=== PATIENT | female | born 1950 | race Caucasian/White ===

== ENCOUNTER 2018-01-15 16:46 | Observation (INO) | payer MEDICAID ==
[~2018-01-15] VITALS: Ht 160 cm; Wt 159.1 kg
--- NOTE | ~2018-01-15 | OP ---
PATIENT NAME: RICO YIN MEDICAL RECORD: [id number] :54 LOCATION:[facility] ADMISSION DATE:01/15/18 SURGEON: AGUSTIN OLIVAS MD DATE OF OPERATION: 01/16/2018 PROCEDURES: 1. Left heart catheterization. 2. Selective coronary angiography. 3. Vein graft angiography. 4. Left ventriculogram. INDICATION: Angina and coronary artery disease. PROCEDURE IN DETAIL: After informed consent was obtained and after detailed explanation of risks, benefits as well as alternative therapies, the patient elected to proceed with angiogram and heart catheterization. The right femoral area was prepped and draped in normal sterile fashion. Right femoral artery was cannulated via modified Seldinger technique with placement of 5-Setswana sheath. All catheters exchanged through this sheath. FINDINGS: The left ventriculogram was performed in standard 30-degree VELARDE view reveals preserved cardiac wall motion and ejection fraction 50%. SELECTIVE CORONARY ANGIOGRAPHY: 1. Left main showed no significant angiographic disease. 2. Left anterior descending has 80% to 90% stenosis proximally. 3. Vein graft to the distal LAD is widely patent. 4. The left circumflex has 80% to 90% stenosis proximally. 5. Vein graft to circumflex is widely patent. 6. The right coronary has 80% to 90% stenosis in the mid vessel. 7. Vein graft to the right coronary is closed. OVERALL IMPRESSION: Wide patency of the vein graft to the left and LAD, closure of the vein graft to the right. Proceed with transcatheter revascularization of the RCA in a staged fashion in the near future. TRANSINT:[id number] Voice Confirmation ID: [id number] DOCUMENT ID: [id number] AUGSTIN OLIVAS MD at 1057 CC: [id number] DICTATION DATE: 01/16/18 1329 RN FLOAT: 01/16/18 1446 DIS IN 01/17/18 [place] [id number]
--- NOTE | ~2018-01-15 | HEMODYNAMI ---
PATIENT:RICO YIN MEDICAL RECORD: [id number] : 54 [facility] [id number] ADMISSION DATE: 01/15/18 Generatedon:01/17/201812:18 Patient name: RCIO YIN Patient #: [id number] SSN: [id number] : 1950 Date of study: 01/17/2018 Page: Of Hemodynamic Procedure Report Patient Data Patient Demographics Procedure consent was obtained First Name: RICO Gender: Female Last Name: HUMPHREY : 1950 Middle Initial: KATHLEEN Age: 67 year(s) Patient #: [id number] Race: Unknown SSN: [id number] Additional ID: [id number] Contact details [address]: [address] [place] [address] State: [place] City: [place] Zip code: [address] Admission Admission Data Admission Date: 01/15/2018 Admission Time: 18:51 Room #: 212 Lab Results Lab Result Date: 01/16/2018 Lab Result Time: 0:00 Biochemistry Name Units Result Min Max BUN mg/dl 15 --(--*-)-- 7 18 Creatinine mg/dl 1 --(--*-)-- 0.6 1.3 CBC Name Units Result Min Max Hemoglobin g/dl 13 -*(----)-- 13.5 17.5 Procedure Procedure Types Cath Procedure PCI Procedure Coronary Stent Coronary Stent Initial Procedure Description Procedure Date Procedure Date: 01/17/2018 Procedure Start Time: 12:05 Procedure End Time: 12:18 Procedure Staff Name Function Constantino Hahn MD Performing Physician Alicja Rocha RT Monitor Christiano Lujan RN Nurse Teri Mason RT Scrub Procedure Data Cath Procedure Fluoroscopy Diagnostic fluoroscopy Total fluoroscopy Time: 1.9 time: 1.9 min min Diagnostic fluoroscopy Total fluoroscopy dose: 309 dose: 309 mGy mGy Contrast Material Contrast Material Type Amount (ml) Isovue 300 27 Entry Location Entry Primary Successful Side Size Upsize Upsize Entry Closure Sweeney ccessful Closure Location (Fr) 1 (Fr) 2 (Fr) Remarks Device Remarks Radial Right 6 Fr Mechanical artery Short Compression Estimated blood loss: 5 ml Procedure Complications No complications Procedure Medications Medication Administration Route Dosage 0.9% NaCl I.V. 100 ml/hr Oxygen etCO2 Nasal cannula 2 l/min Heparin Flush Bag added to field 2 bags (1000units/500ml NS) Lidocaine 2% added to field 20 Radial Cocktail added to field (Verapomil 2mg/Nitro 400mcg/Heparin 1500units) Versed I.V. 2 mg Fentanyl I.V. 100 mcg Versed I.V. 1 mg Radial Cocktail I.A. (Verapomil 2mg/Nitro 400mcg/Heparin 1500units) Heparin Bolus I.V. 4000 units Versed I.V. 1 mg Hemodynamics Rest HGB: 13 (g/dl) Heart Rate: 84 (bpm) Snapshots Pre Cath Intra NCS Post Cath Vital Signs Time Heart Resp SPO2 etCO2 NIBP (mmHg) Rhythm Pain Sedation Rate (ipm) (%) (mmHg) Status Level (bpm) 11:53:41 85 16 100 46.4 145/63(107) NSR 0 (11) 10(A) , No pain 11:58:42 83 13 100 41.1 129/57(88) NSR 0 (11) 10(A) , No pain 12:03:43 80 14 99 44.9 135/62(82) NSR 0 (11) 10(A) , No pain 12:08:50 92 16 100 43.4 137/49(90) NSR 0 (11) 10(A) , No pain 12:13:59 86 14 97 44.8 105/45(88) NSR 0 (11) 10(A) , No pain Medications Time Medication Route Dose Verified Delivered Reason Notes Effectiveness by by 11:55:01 0.9% NaCl I.V. 100 Christiano Christiano Per physician ml/hr Tai Lujan RN RN 11:55:13 Oxygen etCO2 2 Christiano Christiano Per physician Nasal l/min Tai Lujan cannula RN RN 11:55:27 Heparin Flush added 2 Christiano Christiano used for Bag to bags Tai Lujan procedure (1000units/500ml field RN RN NS) 11:55:40 Lidocaine 2% added 20ml Christiano Christiano for local to vial Marylily Tai anesthetic RN RN 11:55:53 Radial Cocktail added Christiano Christiano used for (Verapomil to Lorigan Lorigan procedure 2mg/Nitro field RN RN 400mcg/Heparin 1500units) 12:01:50 Versed I.V. 2 mg Christiano Christiano for sedation Tai Lujan RN RN 12:02:03 Fentanyl I.V. 100 Christiano Christiano for sedation mcg Tai Lujan RN RN 12:07:51 Versed I.V. 1 mg Christiano Christiano for sedation Tai Lujan RN RN 12:08:04 Radial Cocktail I.A. Christiano Constantino for (Verapomil Tai Hahn MD vasodilation 2mg/Nitro RN 400mcg/Heparin 1500units) 12:11:37 Heparin Bolus I.V. 4000 Christiano Christiano for units Tai Lujan anticoagulation RN RN 12:14:48 Versed I.V. 1 mg Christiano Christiano for sedation Tai Lujan RN diabetic educator Log Time Note 11:33:00 Teri Mason RT(R) sent for patient. Start room use. 11:52:03 Time tracking: Regular hours 11:52:06 Plan of Care:Hemodynamics will remain stable., Cardiac rhythm will remain stable., Comfort level will be maintained., Respiratory function will remain adequate., Patient/ family verbilizes understanding of procedure., Procedure tolerated without complication., Recovers from procedure without complications.. 11:52:15 Patient received from PCU to CCL 1 Alert and oriented. Tansferred to table in Supine position. 11:52:16 Warm blankets applied, and cori hugger turned on for patient comfort. 11:52:17 Correct patient and procedure confirmed by team. 11:52:18 Signed procedure consent form obtained from patient. 11:52:19 ECG and BP/O2 sat monitors applied to patient. 11:52:19 Vital chart was started 11:52:20 Full Disclosure recording started 11:52:29 H&P Date Dictated: 01/15/2018 Within 30 days and on chart.. 11:52:34 Rhythm: sinus rhythm 11:52:36 Pre-op teaching completed and patient verbalized understanding. 11:52:37 Pre-procedure instructions explained to patient. 11:52:40 Family unavailable. 11:52:41 Patient NPO since Midnight. 11:52:47 Is the patient allergic to Iodine/contrast media? No. 11:52:50 Is patient on blood thinner?Yes 11:52:52 ACC The patient was administered the following blood thiners within the last 24 hours: ACCPlavix 11:52:54 Patient diabetic? No. 11:52:58 Previous problem with sedation/anesthesia? No ? 11:52:58 Snore? Yes 11:52:59 Sleep apnea? No 11:53:00 Deviated septum? No 11:53:01 Opens mouth fully? Yes 11:53:01 Sticks out tongue? Yes 11:53:05 Airway obstruction? Yes Asthma 11:53:08 Dentures? No ? 11:53:11 Pre procedure: right dorsailis pedis pulse 1+ Palpable, but thready & weak; easily obliterated 11:53:18 Modified Omari's test Ulnar < 7 seconds 11:53:20 Patient pain scale 0/10 ?. 11:53:28 IV patent on arrival in left wrist with 0.9% NaCl at O. 11:53:32 Lab results completed and on chart. 11:53:36 Right groin area was prepped with chlora-prep and draped in sterile fashion 11:53:38 Alarms reviewed by R. N. 11:53:38 Sharps counted by scrub and verified by R.N. 11:53:44 Use device set CATH PACK 11:53:48 Use device set TAUTH PCI 11:54:00 SHEATH 6Fr Prelude Radial ([id number]) opened to sterile field. 11:54:03 ACIST Syringe (06043) opened to sterile field. 11:54:03 ACIST Hand Control (68695) opened to sterile field. 11:54:04 ACIST Manifold (98600) opened to sterile field. 11:54:04 Medline Cath Pack ([id number]) opened to sterile field. 11:54:05 Bag Decanter (2002) opened to sterile field. 11:54:05 DIAGNOSTIC WIRE .035 260cm J wire (245449) opened to sterile field. 11:54:06 INFLATOR Merit BasixCompak (LQ3103) opened to sterile field. 11:54:10 CHOICE PT Extra Support 182cm wire ([id number]) opened to sterile field. 11:55:01 0.9% NaCl 100 ml/hr I.V. was administered by Christiano Lujan RN; Per physician; 11:55:13 Oxygen 2 l/min etCO2 Nasal cannula was administered by Christiano Lujan RN; Per physician; 11:55:27 Heparin Flush Bag (1000units/500ml NS) 2 bags added to field was administered by Christiano Lujan RN; used for procedure; 11:55:40 Baseline sample Acquired. 11:55:40 Lidocaine 2% 20ml vial added to field was administered by Christiano Lujan RN; for local anesthetic; 11:55:53 Radial Cocktail (Verapomil 2mg/Nitro 400mcg/Heparin 1500units) added to field was administered by Christiano Lujan RN; used for procedure; 11:58:25 Physician paged 12:00:51 Final Timeout: patient, procedure, and site verified with staff and physician. All members of the team are in agreement. 12:00:54 Right Radial site verified by team. 12:00:57 Physical assessment completed. ASA score P 2 - A patient with mild systemic disease as per Constantino Hahn MD. 12:01:02 Sedation plan: IV Moderate Sedation Medication:Versed, Fentanyl 12:01:40 Zero performed for pressure channel P1 12:01:50 Versed 2 mg I.V. was administered by Christiano Lujan RN; for sedation; 12:02:03 Fentanyl 100 mcg I.V. was administered by Christiano Lujan RN; for sedation; 12:05:05 Procedure started. 12:05:50 Local anesthetic to right radial artery with Lidocaine 2% by Constantino Hahn MD.INITIAL ACCESS ONLY 12:06:59 A 6 Fr Short sheath was inserted into the Right Radial artery 12:07:34 6 Fr AR 2.0 guide catheter was inserted over the wire 12:07:51 Versed 1 mg I.V. was administered by Christiano Lujan RN; for sedation; 12:08:04 Radial Cocktail (Verapomil 2mg/Nitro 400mcg/Heparin 1500units) I.A. was administered by Constantino Hahn MD; for vasodilation; 12:11:17 CHOICE PT ES wire advanced. 12:11:37 Heparin Bolus 4000 units I.V. was administered by Christiano Lujan RN; for anticoagulation; 12:12:00 Place stent Inflation Number: 1 A CHERELLE RX 3.0 x 38 stent ([id number]) was prepped and advanced across the Mid RCA. The stent was deployed at 15 LESLIE for 0:10 (min:sec). 12:12:45 Stent catheter was removed intact over wire. 12:12:46 Wire removed. 12:12:47 Guide catheter removed. 12:12:59 Sheath removed intact; hemostasis achieved with Mechanical Compression to the Right Radial artery. 12:13:02 Procedure ended.(Physican Out) 12:13:09 Fluoroscopy time 01.90 minutes. 12:13:13 Flurop Dose total: 309 12:13:13 Fluoroscopy dose: 309 mGy 12:13:17 Contrast amount:Isovue 300 27ml. 12:13:19 Sharps counted by scrub and verified by R.N. 12:13:20 Insertion/operative site no bleeding no hematoma. 12:13:23 TR band inflated with 12cc of air. 12:13:36 Post right radial artery:stable, clean and dry 12:13:38 Post Procedure Pulses reassessed and unchanged 12:13:41 Post-procedure physical assessment completed. ASA score P 2 - A patient with mild systemic disease as per Constantino Hahn MD. 12:13:43 Post procedure rhythm: unchanged. 12:13:47 Estimated blood loss: 5 ml 12:13:48 Post procedure instruction explained to patient.Patient verbalizes understanding. 12:13:49 Patient needs reinforcement of post procedure teaching. 12:13:50 Procedure and supply charges have been captured, reviewed, submitted and are correct. 12:13:55 Procedure Complication : No complications 12:13:58 See physician's report for complete and final results. 12:14:18 TR BAND Standard ([id number]) opened to sterile field. 12:14:28 GUIDE 6FR AR 2.0 catheter (OU4MZ08) opened to sterile field. 12:14:48 Versed 1 mg I.V. was administered by hCristiano Lujan RN; for sedation; 12:17:27 Vital chart was stopped 12:17:30 Report given to Pre/Post Procedure Room. 12:17:34 Patient transfered to Pre/Post Procedure Room with Stretcher. 12:18:21 Procedure ended. 12:18:21 Full Disclosure recording stopped 12:18:24 End room use (Document Last) Intervention Summary Intervention Notes Time ActionType Lesion and Equipment Used Action# Pressure Duration Attributes 12:12:00 Place stent Mid RCA CHERELLE RX 3.0 x 1 15 00:10 38 stent ([id number]) Device Usage Item Name Manufacture Quantity Catalog Number Hospital Part Current Minimal Lot# / Charge Number Stock Stock Serial# Code SHEATH 6Fr Merit 1 [id number] 844985 819388 5 Prelude Radial Medical ([id number]) ACIST Syringe Acist 1 16349 774401 400987 835239 20 (41781) [employer] Inc ACIST Hand Acist 1 36379 154008 077208 793134 5 Control (57579) [employer] Inc ACIST Manifold Acist 1 88437 057035 238185 506600 5 (23402) Medical Systems Inc Medline Cath Cardinal 1 [id number] 330467 30447 417416 5 [employer] ([id number]) Bag Decanter Microtek 1 2001S 686865 27076 778862 5 (2001S) Medical Inc. DIAGNOSTIC WIRE St Naun 1 684186 665664 533238 450376 30 .035 260cm J wire (256935) INFLATOR Merit Merit 1 UT5680 576111 389050 136310 15 NotehallPark City HospitalMatomy Money Medical (UH8575) CHOICE PT Extra [place] 1 [id number] 647298 001777 378229 5 Support 182cm Scientific wire ([id number]) TR BAND Terumo 1 [id number] 403473 167467 365731 40 Standard ([id number]) GUIDE 6FR AR Medtronic 1 [id number] 072952 55271 823100 1 2.0 catheter (GB1IM27) CHERELLE RX 3.0 x Medtronic 1 [id number] 592440 0750134 945487 5 [id number] 38 stent ([id number]) Signature Audit [place] Stage Time Signature Unsigned Intra-Procedure 01/17/2018 Alicja 12:18:33 PM Counts RT(R) Signatures Monitor : Alicja Signature : Counts RT Date : Time : [place] [address] [place] [place] [address]
--- NOTE | ~2018-01-15 | OP ---
PATIENT NAME: RICO YIN MEDICAL RECORD: [id number] :54 LOCATION:[facility] ADMISSION DATE:01/15/18 SURGEON: AGUSTIN OLIVAS MD DATE OF OPERATION: 01/17/2018 PROCEDURES: 1. PTCA stent RCA. 2. Selective coronary angiography. INDICATION: Angina and coronary artery disease. PROCEDURE IN DETAIL: After informed consent was obtained and after detailed explanation of risks, benefits as well as alternative therapies, the patient elected to proceed with angiogram and angioplasty. The right radial area is prepped and draped in normal sterile fashion. Right radial artery cannulated via modified Seldinger technique with placement of 6-German sheath. All catheter exchanged through this sheath. FINDINGS: The right coronary has a long area of 80% stenosis in the mid vessel. This was addressed with a 3.0 x 38 mm [place]. Result was 0% residual stenosis. OVERALL IMPRESSION: Successful percutaneous transluminal coronary angioplasty stent of the right coronary artery going from 80% initial stenosis to 0% residual. TRANSINT:[id number] Voice Confirmation ID: [id number] DOCUMENT ID: [id number] AGUSTIN OLIVAS MD at 1057 CC: [id number] DICTATION DATE: 01/17/18 1220 ADULT REMEDIAL EDUCATION INSTRUCTOR: 01/17/18 1306 DIS IN 01/17/18 [place] [id number]
--- NOTE | ~2018-01-15 | DS ---
PATIENT:RICO YIN :54 MEDICAL RECORD: [id number] DISCHARGE SUMMARY ADMISSION DATE: 01/15/18 DISCHARGE DATE: 01/17/18 DISCHARGE DIAGNOSES: 1. Unstable angina. 2. Coronary artery disease. 3. PTCA and stent of RCA this admission. HOSPITAL COURSE: Mrs. Yin presents with anginal symptomatology. She was found to have significant disease of the RCA. Underwent successful PTCA and stent of the RCA. Discharged home with the addition of aspirin and Plavix to her medical regimen. She will follow up with [facility] in 1 month. TRANSINT:[id number] Voice Confirmation ID: [id number] DOCUMENT ID: [id number] AGUSTIN OLIVAS MD at 1057 CC: [id number] DICTATION DATE: 01/17/18 1219 DYE RANGE FEEDER: 01/17/18 1315 DIS IN 01/17/18 [place] [id number] [place] [address]
--- NOTE | ~2018-01-15 | HEMODYNAMI ---
PATIENT:RICO YIN MEDICAL RECORD: [id number] : 54 [id number] ADMISSION DATE: 01/15/18 Generatedon:01/16/201813:42 Patient name: RICO YIN Patient #: [id number] SSN: [id number] : 1950 Date of study: 01/16/2018 Page: Of Hemodynamic Procedure Report Patient Data Patient Demographics Procedure consent was obtained First Name: RICO Gender: Female Last Name: HUMPHREY : 1950 Middle Initial: KATHLEEN Age: 67 year(s) Patient #: [id number] Race: Unknown SSN: [id number] Additional ID: [id number] Contact details Address: [address] [place] [address] State: [place] City: [place] Zip code: [address] Admission Admission Data Admission Date: 01/15/2018 Admission Time: 18:51 Room #: 2121 Lab Results Lab Result Date: 01/16/2018 Lab Result Time: 0:00 Biochemistry Name Units Result Min Max BUN mg/dl 15 --(--*-)-- 7 18 Creatinine mg/dl 1 --(--*-)-- 0.6 1.3 CBC Name Units Result Min Max Hemoglobin g/dl 13 -*(----)-- 13.5 17.5 Procedure Procedure Types Cath Procedure Diagnostic Procedure LHC LHC w/Coronaries w/Grafts Procedure Description Procedure Date Procedure Date: 01/16/2018 Procedure Start Time: 12:53 Procedure End Time: 13:31 Procedure Staff Name Function Constantino Hahn MD Performing Physician Brenda Lawrence RT Monitor Shelley Christian RT Scrub Riley Bravo RN Nurse Procedure Data Cath Procedure Fluoroscopy Diagnostic fluoroscopy Total fluoroscopy Time: 4.1 time: 4.1 min min Diagnostic fluoroscopy Total fluoroscopy dose: dose: 1430 mGy 1430 mGy Contrast Material Contrast Material Type Amount (ml) Isovue 300 107 Entry Location Entry Primary Successful Side Size Upsize Upsize Entry Closure Sweeney ccessful Closure Location (Fr) 1 (Fr) 2 (Fr) Remarks Device Remarks Femoral Right 5 Fr Manual artery Compression Estimated blood loss: 5 ml Diagnostic catheters Device Type Used For End Catheter Placement MULTIPACK Pigtail 5 Fr LV Angiography catheter MULTIPACK JL 4.0 5Fr Left Coronary catheter Angiography MULTIPACK 3DRC 5Fr Right Coronary catheter Angiography DIAGNOSTIC AR 2 MOD 5 Fr Multi-vessel catheter ([id number]) Angiography Procedure Complications No complications Procedure Medications Medication Administration Route Dosage Oxygen NC 2 l/min Lidocaine 2% added to field 20 Heparin Flush Bag added to field 2 bags (1000units/500ml NS) 0.9% NaCl I.V. 100 ml/hr Fentanyl I.V. 100 mcg Versed I.V. 1 mg Fentanyl I.V. 50 mcg Versed I.V. 2 mg Versed I.V. 1 mg Fentanyl I.V. 50 mcg Versed I.V. 1 mg Fentanyl I.V. 50 mcg Heparin Bolus I.V. 4000 units Versed I.V. 1 mg Fentanyl I.V. 50 mcg Versed I.V. 1 mg Fentanyl I.V. 50 mcg Hemodynamics Rest Heart Rate: 87 (bpm) Pressure Samples Time Site Value (mmHg) Purpose Heart Use Rate(bpm) 13:15 LV 323/149,138 Snapshot 93 Snapshots Pre Cath Intra NCS Post Cath Vital Signs Time Heart Resp SPO2 etCO2 NIBP (mmHg) Rhythm Pain Sedation Rate (ipm) (%) (mmHg) Status Level (bpm) 12:50:23 87 15 98 42.1 133/116(130) NSR 0 (11) 10(A) , No pain 12:56:40 90 10 96 36.1 151/89(115) NSR 0 (11) 10(A) , No pain 13:00:50 89 26 98 24 162/87(120) NSR 0 (11) 10(A) , No pain 13:06:22 84 13 97 27.8 137/69(109) NSR 0 (11) 10(A) , No pain 13:10:23 89 15 98 12 114/80(109) NSR 0 (11) 10(A) , No pain 13:14:19 90 14 92 1.5 101/87(98) NSR 0 (11) 9(A) , No pain 13:18:13 92 15 93 33.8 103/79(99) NSR 0 (11) 9(A) , No pain 13:24:11 93 15 93 12.7 106/82(101) NSR 0 (11) 9(A) , No pain 13:28:00 97 16 95 18.8 115/95(110) NSR 0 (11) 10(A) , No pain Medications Time Medication Route Dose Verified Delivered Reason Notes Effectiveness by by 12:51:18 Oxygen NC 2 Constantino Buffie used for l/min Jovani Bravo RN procedure 12:51:24 Lidocaine 2% added 20ml Constantino Constantino for local to vial Jovani Hahn MD anesthetic field 12:51:30 Heparin Flush added 2 Constantino Constantino used for Bag to bags Jovani Hahn MD procedure (1000units/500ml field NS) 12:51:38 0.9% NaCl I.V. 100 Constantino Buffie Per physician ml/hr Jovani Bravo RN 12:54:14 Versed I.V. 2 mg Constantino Buffie for sedation Jovani Bravo RN 12:54:20 Fentanyl I.V. 100 Constantino Buffie for sedation mcg Jovani Bravo RN 13:06:24 Versed I.V. 1 mg Constantino Buffie for sedation Jovani Bravo RN 13:06:27 Fentanyl I.V. 50 Constantino Buffie for sedation mcg Jovani Bravo RN 13:10:48 Versed I.V. 1 mg Constantino Buffie for sedation Jovani Bravo RN 13:10:51 Fentanyl I.V. 50 Constantino Buffie for sedation mcg Jovani Bravo RN 13:14:31 Versed I.V. 1 mg Constantino Buffie for sedation Jovani Bravo RN 13:14:34 Fentanyl I.V. 50 Constantino Buffie for sedation mcg Jovani Bravo RN 13:18:52 Versed I.V. 1 mg Constantino Buffie for sedation Jovani Bravo RN 13:18:56 Fentanyl I.V. 50 Constantino Buffie for sedation soo Bravo RN 13:22:27 Versed I.V. 1 mg Constantino Buffie for sedation Jovani Bravo RN 13:22:31 Fentanyl I.V. 50 Constantino Buffie for sedation soo Bravo RN 13:23:22 Heparin Bolus I.V. 4000 Constantino Lin for verifi ed units Jovani Bravo RN anticoagulation with dr hahn Procedure Log Time Note 12::06 Informed consent obtained and on chart 12:24:09 Diagnostic Cath Status : Elective 12:24:38 Brenda Lawrence RT(R) sent for patient. Start room use. 12:24:39 Time tracking: Regular hours 12:24:43 Plan of Care:Hemodynamics will remain stable., Cardiac rhythm will remain stable., Comfort level will be maintained., Respiratory function will remain adequate., Patient/ family verbilizes understanding of procedure., Procedure tolerated without complication., Recovers from procedure without complications.. 12:30:06 Lab Result : Hemoglobin 13 g/dl 12:30:06 Lab Result : Creatinine 1 mg/dl 12:30:06 Lab Result : BUN 15 mg/dl 12:35:02 Patient received from Med II to CCL 2 Alert and oriented. Tansferred to table in Supine position. 12:35:03 Warm blankets applied, and cori hugger turned on for patient comfort. 12:35:04 Correct patient and procedure confirmed by team. 12:35:05 ECG and BP/O2 sat monitors applied to patient. 12:49:20 Vital chart was started 12:49:21 Baseline sample Acquired. 12:49:28 Rhythm: sinus rhythm 12:49:29 Full Disclosure recording started 12:49:33 H&P Date Dictated: 01/16/2018 Within 30 days and on chart., H&P Addendum completed by physician on day of procedure. (MUST COMPLETE FOR ALL OUTPATIENTS). 12:49:34 Pre-procedure instructions explained to patient. 12:49:35 Pre-op teaching completed and patient verbalized understanding. 12:49:36 Family in waiting room. 12:49:37 Patient NPO since Dinner. 12:49:45 Is the patient allergic to Iodine/contrast media? No. 12:49:47 Was the patient premedicated? No 12:50:00 Is patient on blood thinner?Yes 12:50:03 ACC The patient was administered the following blood thiners within the last 24 hours: ACCPlavix 12:50:46 Patient diabetic? No. 12:50:48 Previous problem with sedation/anesthesia? No ? 12:50:51 Snore? Yes 12:50:53 Sleep apnea? No 12:50:54 Deviated septum? No 12:50:55 Opens mouth fully? Yes 12:50:56 Sticks out tongue? Yes 12:51:01 Airway obstruction? Yes asthma 12:51:04 Dentures? No ? 12:51:08 Pre procedure: right dorsailis pedis pulse 1+ Palpable, but thready & weak; easily obliterated 12:51:11 Pre procedure: left dorsailis pedis pulse 1+ Palpable, but thready & weak; easily obliterated 12:51:14 Patient pain scale 0/10 ?. 12:51:18 Oxygen 2 l/min NC was administered by Riley Bravo RN; used for procedure; 12:51:21 IV patent on arrival in left antecubital with 0.9% NaCl at [facility]. 12:51:24 Lidocaine 2% 20ml vial added to field was administered by Constantino Hahn MD; for local anesthetic; 12:51:25 Lab results completed and on chart. 12:51:29 Right groin area was prepped with chlora-prep and draped in sterile fashion 12:51:30 Heparin Flush Bag (1000units/500ml NS) 2 bags added to field was administered by Constantino Hahn MD; used for procedure; 12:51:30 Alarms reviewed by R. N. 12:51:30 Sharps counted by scrub and verified by R.N. 12:51:31 Physician arrived 12:51:31 Final Timeout: patient, procedure, and site verified with staff and physician. All members of the team are in agreement. 12:51:32 --------ALL STOP TIME OUT------ 12:51:34 Right groin site verified by team. 12:51:38 0.9% NaCl 100 ml/hr I.V. was administered by Riley Bravo RN; Per physician; 12:52:28 Physical assessment completed. ASA score P 2 - A patient with mild systemic disease as per Constantino Hahn MD. 12:52:31 Sedation plan: IV Moderate Sedation Medication:Versed, Fentanyl 12:52:34 Use device set Femoral Dx 12:52:35 ACIST Syringe (23401) opened to sterile field. 12:52:35 Bag Decanter (2002) opened to sterile field. 12:52:36 Medline Cath Pack ([id number]) opened to sterile field. 12:52:37 DIAGNOSTIC WIRE .035 260cm J wire (489042) opened to sterile field. 12:52:38 ACIST Hand Control (78496) opened to sterile field. 12:52:39 ACIST Manifold (15227) opened to sterile field. 12:52:39 DIAGNOSTIC Multipack 5Fr catheter set (CG1696) opened to sterile field. 12:52:40 Tegaderm 4 x 4 (1626W) opened to sterile field. 12:52:55 SHEATH 5Fr Prelude ([id number]) opened to sterile field. 12:53:17 Procedure started. 12:53:40 Local anesthetic to right femoral artery with Lidocaine 2% by Constantino Hahn MD.INITIAL ACCESS ONLY 12:54:14 Versed 2 mg I.V. was administered by Riley Bravo RN; for sedation; 12:54:20 Fentanyl 100 mcg I.V. was administered by Riley Bravo RN; for sedation; 12:54:31 Zero performed for pressure channel P1 12:57:51 IV left antecubital D/C'd due to infiltration. 13:00:21 Riley Bravo attemping to start new IV; Dr. Hahn left room, will rescrub when new IV is placed 13:05:05 IV started by Riley Braov RN inleft hand with a 20 gauge IV catheter with 0.9% NaCl at O. 13:06:24 Versed 1 mg I.V. was administered by Riley Bravo RN; for sedation; 13:06:27 Fentanyl 50 mcg I.V. was administered by Riley Bravo RN; for sedation; 13:10:48 Versed 1 mg I.V. was administered by Riley Bravo RN; for sedation; 13:10:51 Fentanyl 50 mcg I.V. was administered by Riley Bravo RN; for sedation; 13:12:25 Dr. Hahn rescrubbed and ready to resume procedure 13:14:07 A 5 Fr sheath was inserted into the Right Femoral artery 13:14:31 Versed 1 mg I.V. was administered by Riley Bravo RN; for sedation; 13:14:34 Fentanyl 50 mcg I.V. was administered by Riley Bravo RN; for sedation; 13:14:41 A MULTIPACK Pigtail 5 Fr catheter was advanced over the wire and used for LV Angiography. 13:15:28 LV hemodynamics recorded. 13:15:29 LV gram done using VELARDE 13:15:35 Injector settings: Ml/sec: 5, Volume: 15, 13:15:48 EF : 55 % 13:15:56 Catheter removed. 13:16:26 A MULTIPACK JL 4.0 5Fr catheter was advanced over the wire and used for Left Coronary Angiography. 13:17:15 LCA angiography performed. 13:17:18 Injector settings: Ml/sec: 3, Volume: 6, 13:17:51 Catheter removed. 13:18:00 A MULTIPACK 3DRC 5Fr catheter was advanced over the wire and used for Right Coronary Angiography. 13:18:10 ZAVALA angiography performed. 13:18:15 Injector settings: Ml/sec: 3, Volume: 6, 13:18:52 Versed 1 mg I.V. was administered by Riley Bravo RN; for sedation; 13:18:56 Fentanyl 50 mcg I.V. was administered by Riley Bravo RN; for sedation; 13:18:57 RCA angiography performed. 13:19:00 Injector settings: Ml/sec: 3, Volume: 6, 13:20:09 Catheter removed. 13:20:16 A DIAGNOSTIC AR 2 MOD 5 Fr catheter ([id number]) was advanced over the wire and used for Multi-vessel Angiography. 13:20:26 SVG to Circ angiography performed. 13:22:27 Versed 1 mg I.V. was administered by Riley Bravo RN; for sedation; 13::31 Fentanyl 50 mcg I.V. was administered by Riley Bravo RN; for sedation; 13:23:22 Heparin Bolus 4000 units I.V. was administered by Riley Bravo RN; for anticoagulation; verified with dr hahn 13:23:28 SVG to LAD angiography performed. 13:23:31 Catheter removed. 13:23:32 Proceeding to intervention. 13::41 SHEATH 6FR [place] ([id number]) opened to sterile field. 13:29:22 Intervention aborted due to contrast amount 13:29:39 Sheath removed intact; hemostasis achieved with Manual Compression to the Right Femoral artery. 13::42 Procedure ended.(Physican Out) 13:29:55 Fluoroscopy time 04.10 minutes. 13:30:00 Fluoroscopy dose: 1430 mGy 13:30:00 Flurop Dose total: 1430 13:30:12 Contrast amount:Isovue 300 107ml. 13:30:13 Sharps counted by scrub and verified by R.N. 13:30:15 Insertion/operative site no bleeding no hematoma. 13:30:18 Post-op/insertion site Right Femoral artery dressed using a 4 x 4 and Tegaderm. 13:30:21 Post right femoral artery:stable 13:30:22 Post Procedure Pulses reassessed and unchanged 13:30:24 Post procedure rhythm: unchanged. 13:30:28 Estimated blood loss: 5 ml 13:30:29 Post procedure instruction explained to patient.Patient verbalizes understanding. 13:30:29 Patient needs reinforcement of post procedure teaching. 13:30:39 Procedure type changed to Cath procedure, Diagnostic procedure, LHC, LHC w/Coronaries w/Grafts 13:30:52 Procedure and supply charges have been captured, reviewed, submitted and are correct. 13:30:57 Procedure Complication : No complications 13:30:59 Vital chart was stopped 13:30:59 See physician's report for complete and final results. 13:31:04 Report given to [facility]. 13:31:07 Patient transfered to [facility] with Stretcher. 13:31:09 Procedure ended. 13:31:09 Full Disclosure recording stopped 13:31:15 End room use (Document Last) Device Usage Item Name Manufacture Quantity Catalog Hospital Part Current Minimal Lot# / Number Charge Number Stock Stock Serial# Code ACIST Acist 1 85798 076979 887554 051421 20 Syringe Medical (35972) Systems Inc Bag Decanter Microtek 1 2001S 436882 47670 708191 5 () Medical Inc. Medline Cath Cardinal 1 [id number] 720551 32965 633516 5 Pack Grassroots Unwired ([id number]) DIAGNOSTIC St Naun 1 274267 826616 727621 370383 30 WIRE .035 260cm J wire (501390) ACIST Hand Acist 1 51040 789590 697583 200811 5 Control Medical (33711) Systems Inc ACIST Acist 1 67368 392022 634929 784669 5 Manifold Medical (39528) Systems Inc DIAGNOSTIC Cardinal 1 [id number] 693077 38590 909841 30 Multipack Health 5Fr catheter set (RX1890) Tegaderm 4 x 3M 1 1626W 156768 942592 269430 5 4 (1626W) SHEATH 5Fr Merit 1 [id number] 184774 191889 847833 5 Prelude Medical ([id number]) MULTIPACK Cardinal 1 209808 5 Pigtail 5 Fr Health catheter MULTIPACK JL Cardinal 1 [id number] 5 4.0 5Fr Health catheter MULTIPACK Cardinal 1 901416 5 3DRC 5Fr Health catheter DIAGNOSTIC Cardinal 1 [id number] 303542 688359 067493 20 AR 2 MOD 5 Health Fr catheter ([id number]) SHEATH 6FR Terumo 1 HII894 345343 205467 892359 40 [place] ([id number]) Signature Audit [place] Stage Time Signature Unsigned Intra-Procedure 01/16/2018 Brenda Lawrence 1:42:37 PM RT(R) Signatures Monitor : Brenda Lawrence RT Signature : Date : Time : [place] [id number] [id number]
[~2018-01-15 16:46] MED LIST: AMBIEN10 MG PO; BYSTOLIC20 MG PO; ED-SPAZ0.125 MG PO; FLEXERIL10 MG PO; FLEXERIL5 MG; HYOSCYAMINE0.125 M1 SL; ISOSORBIDE DINI10 MG PO; ISOSORBIDE DINI20 MG PO; LIPITOR40 MG PO; MAGNESIUM OXID250 MG PO; NORVASC10 MG PO; PROZAC20 MG PO; ULTRAM50 MG PO; ZOCOR20 MG PO
[2018-01-15 17:28] LABS: BASOPHILS 0.4 % (0-2); EOSINOPHILS 3.7 % (0-7); HEMATOCRIT 40.2 % (36.0-48.0); IMMATURE GRANULOCYTES 0.3 % (0-5); LYMPHOCYTES 23.6 % (15-50); MCH 28.4 pg (26.0-34.0); MCHC 32.3 g/dL (31.0-37.0); MCV 87.8 fL (80.0-100.0); MEAN PLATELET VOLUME 9.1 fL (7.4-10.4); PLATELET COUNT 224 10x3/uL (130-400); RBC 4.58 10x6/uL (4.00-5.40); RDW 13.2 % (11.5-14.5); WBC 6.8 10x3/uL (4.8-10.8)
[2018-01-15 17:51] LABS: ALBUMIN 3.3 g/dL (3.4-5.0); ALKALINE PHOSPHATASE 116 U/L (46-116); ALT (SGPT) 18 U/L (10-68); BILIRUBIN - TOTAL 0.37 mg/dL (0.2-1.3); CALC OSMOLALITY 280 mosm/kg (275-300); CALCIUM 9.1 mg/dL (8.5-10.1); CARBON DIOXIDE 29.2 mmol/L (21.0-32.0); CHLORIDE - SERUM 103 mmol/L (98-107); GLUCOSE 110 mg/dL (74-106); POTASSIUM - SERUM 4.2 mmol/L (3.5-5.1); PROTEIN - SERUM 7.5 g/dL (6.4-8.2); SODIUM 140 mmol/L (136-145); UREA NITROGEN 15 mg/dL (7-18); eGFR NON AFRICAN AMERICAN 59 mL/min (90-120)
[2018-01-15 18:01] LABS: CHOL - HDL RATIO 3.4 ratio (2.3-4.1); CHOLESTEROL, TOTAL 165 mg/dL (0-200); CKMB 0.6 U/L (0.0-3.6); CREATINE KINASE 35 UL (21-215); HDL CHOLESTEROL 49 mg/dL (32-96); LDL CHOLESTEROL 98 mg/dL (0-100); TRIGLYCERIDE 90 mg/dL (30-200)
[2018-01-15 18:08] LABS: TROPONIN-I < 0.017 ng/mL (0.000-0.060)
[2018-01-15] MEDS ORDERED: ADVIL200 MG PO (20:40)
[2018-01-15] MEDS ORDERED: ASPIRIN325 MG PO (20:41)
[2018-01-15] MEDS ORDERED: PERCOCET 10/3251 TA1 PO (20:42)
[2018-01-15] MEDS ORDERED: PEPCID AC20 MG PO (20:42)
[2018-01-15] MEDS ORDERED: METOPROLOL TART25 MG PO (20:43)
[2018-01-15] MEDS ORDERED: NEURONTIN 400400 MG PO (20:43)
[2018-01-15] MEDS ORDERED: FLAXSEED OIL1000 MG PO (20:44)
[2018-01-15] MEDS ORDERED: BUMEX2 MG PO (20:44)
[2018-01-15] MEDS ORDERED: PRINIVIL20 MG PO (20:44)
[2018-01-15] MEDS ORDERED: HYDROCODONE-APA1 TAB PO (20:45)
[2018-01-15 21:33] VITALS: BP 161/69
[2018-01-16] VITALS (7 sets, daily range): BP systolic 100–161; BP diastolic 47–83; Ht 160 cm; Wt 159.1 kg
[2018-01-16 09:36] LABS: CALCIUM 8.7 mg/dL (8.5-10.1); CARBON DIOXIDE 29.1 mmol/L (21.0-32.0); CREATININE - SERUM 1.1 mg/dL (0.6-1.3); POTASSIUM - SERUM 4.1 mmol/L (3.5-5.1)
[2018-01-16 09:37] LABS: BASOPHILS 0.2 % (0-2); EOSINOPHILS 3.4 % (0-7); HEMATOCRIT 36.4 % (36.0-48.0); HEMOGLOBIN 11.6 g/dL (12-16); IMMATURE GRANULOCYTES 0.2 % (0-5); LYMPHOCYTES 11.7 % (15-50); MCH 28.3 pg (26.0-34.0); MCHC 31.9 g/dL (31.0-37.0); MCV 88.8 fL (80.0-100.0); MEAN PLATELET VOLUME 9.6 fL (7.4-10.4); MONOCYTES 8.3 % (2-11); NEUTROPHILS 76.2 % (40-80); PLATELET COUNT 236 10x3/uL (130-400); RDW 13.4 % (11.5-14.5)
[2018-01-16 09:45] LABS: WBC 4.4 10x3/uL (4.8-10.8)
[2018-01-17 04:00] VITALS: BP 107/81
[2018-01-17 09:35] VITALS: BP 142/54
[2018-01-17] MEDS ORDERED: PLAVIX75 MG PO (12:23)
== END 2018-01-17 16:51 | disposition home or self-care (01) ==
LOC: D.ER 16:46 → D.M2 18:51 → D.EDHOLD 18:51 → OBSVTIME 18:51 → D.M2 19:34 → D.CLR 01-17 13:28
PROVIDERS: Emergency Medicine; Internal Medicine Interventional Cardiology
DX: I25.110 Atherosclerotic heart disease of native coronary artery with unstable angina pectoris (principal); Z95.1 Presence of aortocoronary bypass graft; Z95.5 Presence of coronary angioplasty implant and graft; I11.0 Hypertensive heart disease with heart failure; I50.9 Heart failure, unspecified; E11.9 Type 2 diabetes mellitus without complications; K21.9 Gastro-esophageal reflux disease without esophagitis; Z87.891 Personal history of nicotine dependence

== ENCOUNTER 2018-05-17 14:12 | Emergency (ER) | payer MEDICAID ==
[~2018-05-17] VITALS: Ht 160 cm; Wt 181.8 kg
[~2018-05-17 14:12] MED LIST changes: +ADVIL200 MG PO; +ASPIRIN325 MG PO; +BUMEX2 MG PO; +FLAXSEED OIL1000 MG PO; +HYDROCODONE-APA1 TAB PO; +METOPROLOL TART25 MG PO; +NEURONTIN 400400 MG PO; +PEPCID AC20 MG PO; +PERCOCET 10/3251 TA1 PO; +PLAVIX75 MG PO; +PRINIVIL20 MG PO
[2018-05-17 14:14] VITALS: Ht 160 cm; Wt 181.8 kg
[2018-05-17 14:52] LABS: BASOPHILS 0.3 % (0-2); EOSINOPHILS 3.9 % (0-7); HEMATOCRIT 35.2 % (36.0-48.0); HEMOGLOBIN 11.4 g/dL (12-16); IMMATURE GRANULOCYTES 0.2 % (0-5); LYMPHOCYTES 17.7 % (15-50); MCH 28.4 pg (26.0-34.0); MCHC 32.4 g/dL (31.0-37.0); MCV 87.8 fL (80.0-100.0); MEAN PLATELET VOLUME 9.6 fL (7.4-10.4); NEUTROPHILS 70.9 % (40-80); PLATELET COUNT 209 10x3/uL (130-400); RBC 4.01 10x6/uL (4.00-5.40); RDW 13.4 % (11.5-14.5); WBC 6.2 10x3/uL (4.8-10.8)
[2018-05-17 15:05] LABS: ALBUMIN 3.1 g/dL (3.4-5.0); ALKALINE PHOSPHATASE 99 U/L (46-116); ALT (SGPT) 18 U/L (10-68); BILIRUBIN - TOTAL 0.25 mg/dL (0.2-1.3); CALC OSMOLALITY 292 mosm/kg (275-300); CALCIUM 8.7 mg/dL (8.5-10.1); CARBON DIOXIDE 24.3 mmol/L (21.0-32.0); CHLORIDE - SERUM 107 mmol/L (98-107); CREATININE - SERUM 1.4 mg/dL (0.6-1.3); GLUCOSE 130 mg/dL (74-106); POTASSIUM - SERUM 4.1 mmol/L (3.5-5.1); PROTEIN - SERUM 6.7 g/dL (6.4-8.2); SODIUM 143 mmol/L (136-145); UREA NITROGEN 28 mg/dL (7-18); eGFR NON AFRICAN AMERICAN 40 mL/min (90-120)
[2018-05-17 15:21] LABS: CKMB 1.1 U/L (0.0-3.6); PRO BNP 1891 pg/mL (0-125)
[2018-05-17 15:23] LABS: TROPONIN-I 0.247 ng/mL (0.000-0.060)
[2018-05-17 19:31] VITALS: BP 138/49
== END 2018-05-17 18:22 | disposition home or self-care (01) ==
LOC: D.ER 14:12
PROVIDERS: Family Medicine
DX: R06.02 Shortness of breath (principal); Z86.79 Personal history of other diseases of the circulatory system; R07.9 Chest pain, unspecified; E11.9 Type 2 diabetes mellitus without complications

== ENCOUNTER → 2018-06-19 14:51 | Outpatient (CLI) | payer MEDICAID ==
[2018-05-17 14:14] VITALS: BMI 71.0
[2018-06-19 17:31] LABS: ANION GAP 12.8 mmol/L (8-16); CALCIUM 9.1 mg/dL (8.5-10.1); CARBON DIOXIDE 28.8 mmol/L (21.0-32.0); CREATININE - SERUM 1.7 mg/dL (0.6-1.3); POTASSIUM - SERUM 4.6 mmol/L (3.5-5.1)
== END | disposition home or self-care (01) ==
LOC: D.LABREF 14:51
PROVIDERS: Internal Medicine Cardiovascular Disease
DX: I25.10 Atherosclerotic heart disease of native coronary artery without angina pectoris (principal)

== ENCOUNTER 2018-08-21 12:26 | Emergency (ER) | payer MEDICARE ==
[~2018-08-21] VITALS: Ht 160 cm; Wt 145.9 kg
[2018-08-21 12:29] VITALS: Ht 160 cm; Wt 145.9 kg
[2018-08-21 12:54] LABS: BASOPHILS 0.5 % (0-2); EOSINOPHILS 4.1 % (0-7); HEMOGLOBIN 12.5 g/dL (12-16); IMMATURE GRANULOCYTES 0.1 % (0-5); LYMPHOCYTES 28.5 % (15-50); MCH 29.3 pg (26.0-34.0); MCHC 32.9 g/dL (31.0-37.0); MCV 89.2 fL (80.0-100.0); MEAN PLATELET VOLUME 10.2 fL (7.4-10.4); MONOCYTES 8.4 % (2-11); NEUTROPHILS 58.4 % (40-80); PLATELET COUNT 236 10x3/uL (130-400); RBC 4.26 10x6/uL (4.00-5.40); RDW 13.2 % (11.5-14.5); WBC 7.4 10x3/uL (4.8-10.8)
[2018-08-21 13:10] LABS: ALBUMIN 3.4 g/dL (3.4-5.0); ALKALINE PHOSPHATASE 116 U/L (46-116); ALT (SGPT) 19 U/L (10-68); BILIRUBIN - TOTAL 0.35 mg/dL (0.2-1.3); CALC OSMOLALITY 294 mosm/kg (275-300); CALCIUM 9.2 mg/dL (8.5-10.1); CARBON DIOXIDE 29.5 mmol/L (21.0-32.0); CHLORIDE - SERUM 102 mmol/L (98-107); CREATININE - SERUM 2.4 mg/dL (0.6-1.3); GLUCOSE 128 mg/dL (74-106); POTASSIUM - SERUM 4.8 mmol/L (3.5-5.1); PROTEIN - SERUM 7.5 g/dL (6.4-8.2); SODIUM 140 mmol/L (136-145); UREA NITROGEN 51 mg/dL (7-18); eGFR NON AFRICAN AMERICAN 21 mL/min (90-120)
[2018-08-21 13:23] LABS: CKMB 0.6 U/L (0.0-3.6); CREATINE KINASE 37 UL (21-215); MAGNESIUM - SERUM 2.5 mg/dL (1.8-2.4); TROPONIN-I < 0.017 ng/mL (0.000-0.060)
[2018-08-21] MEDS ORDERED: ULTRAM50 MG PO (14:02)
[2018-08-21 14:46] VITALS: BP 109/82
== END 2018-08-21 14:47 | disposition home or self-care (01) ==
LOC: D.ER 12:26
PROVIDERS: Emergency Medicine
DX: M16.12 Unilateral primary osteoarthritis, left hip (principal); E11.9 Type 2 diabetes mellitus without complications; I11.0 Hypertensive heart disease with heart failure; I50.9 Heart failure, unspecified; I25.10 Atherosclerotic heart disease of native coronary artery without angina pectoris; R00.1 Bradycardia, unspecified; I44.0 Atrioventricular block, first degree

== ENCOUNTER → 2019-09-11 09:18 | Outpatient (CLI) | payer MEDICARE ==
[2018-08-21 12:29] VITALS: BMI 56.9
== END | disposition home or self-care (01) ==
LOC: D.HCCECHO 09:18
PROVIDERS: ATTEND Internal Medicine Cardiovascular Disease
DX: I25.10 Atherosclerotic heart disease of native coronary artery without angina pectoris (principal)

== ENCOUNTER → 2021-03-09 13:51 | Outpatient (CLI) | payer MEDICARE, MEDICAID ==
[2018-08-21 12:29] VITALS: BMI 56.9
== END | disposition home or self-care (01) ==
LOC: D.HCCECHO 13:51
PROVIDERS: ATTEND Internal Medicine Cardiovascular Disease
DX: I25.10 Atherosclerotic heart disease of native coronary artery without angina pectoris (principal); I35.8 Other nonrheumatic aortic valve disorders; R01.1 Cardiac murmur, unspecified